=== PATIENT | female | born 1970 | race Caucasian/White ===

== ENCOUNTER 2021-01-01 17:06 | Emergency (ER) | payer BC ==
[~2021-01-01] VITALS: Ht 167.6 cm; Wt 82.0 kg
[2021-01-01 17:13] VITALS: BP 127/92
--- NOTE | 2021-01-01 17:47 | RAD ---
Two-view chest dated 01/01/2021 5:45 PM Comparison: None CLINICAL INDICATION: Cough FINDINGS: PA and lateral views obtained. Heart and mediastinal contours within normal limits. Lungs are clear. No consolidation or pleural effusion. No pneumothorax. IMPRESSION: No acute radiographic abnormality. Electronically signed by: Matthew Leal MD (01/01/2021 5:45 PM) JESSICA
[2021-01-01] MEDS ORDERED: METH4TAB2 PO (18:16)
[2021-01-01] MEDS ORDERED: GUAI120L35 PO (18:16)
[2021-01-01] MEDS ORDERED: BENZ100C PO (18:16)
--- NOTE | 2021-01-01 18:17 | PHYS DOC ---
Past History Past Surgical History: Hysterectomy (COBY HENDERSON APRN) Alcohol Use: Occasionally (COBY HENDERSON APRN) General Adult EDM: Chief Complaint: COUGH HPI: HPI: Patient is a 50-year-old female who presents with cough. Patient states that her cough has progressively gotten worse over the last couple of months. Patient has a history of COPD. Patient reports clear sputum. Coughing is worse at night. "I feel like my cough is gotten worse since I received my Covid shot". Patient's been using albuterol and Symbicort but does not feel like it is helping. Patient is also been taking NyQuil with no relief. Denies fever. Patient is a 1 pack-a-day smoker. (COBY HENDERSON APRN) Review of Systems: Review of Systems: Constitutional: Denies fever or chills Eyes: Denies change in visual acuity HENT: Denies nasal congestion or sore throat Respiratory: Reports cough Cardiovascular: Denies chest pain or edema GI: Denies abdominal pain, nausea, vomiting, bloody stools or diarrhea : Denies dysuria Musculoskeletal: Denies back pain or joint pain Integument: Denies rash Neurologic: Denies headache, focal weakness or sensory changes Endocrine: Denies polyuria or polydipsia Lymphatic: Denies swollen glands Psychiatric: Denies depression or anxiety (COBY HENDERSON APRN) Allergies: Allergies: Allergies Coded Allergies Type Severity Reaction Last Updated Verified strawberry Allergy Unknown 01/01/21 Yes tomato Allergy Unknown 01/01/21 Yes (COBY HENDERSON APRN) Physical Exam: PE: Constitutional: Well developed, well nourished, no acute distress, non-toxic appearance. [] HENT: Normocephalic, atraumatic, bilateral external ears normal, oropharynx [address], no oral exudates, nose normal. [] Eyes: PERRLA, EOMI, conjunctiva normal, no discharge. [] Neck: Normal range of motion, no tenderness, supple, no stridor. [] Cardiovascular:Heart rate regular rhythm, no murmur [] Lungs & Thorax: Bilateral breath sounds clear to auscultation [] Abdomen: Bowel sounds normal, soft, no tenderness, no masses, no pulsatile masses. [] Skin: Warm, dry, no erythema, no rash. [] Back: No tenderness, no CVA tenderness. [] Extremities: No tenderness, no cyanosis, no clubbing, ROM intact, no edema. [] Neurologic: Alert and oriented X 3, normal motor function, normal sensory function, no focal deficits noted. [] Psychologic: Affect normal, judgement normal, mood normal. [] (OCBY HENDERSON APRN) Current Patient Data: Vital Signs: Vital Signs Date Time Temp Pulse Resp B/P (MAP) Pulse Ox O2 Delivery O2 Flow Rate FiO2 01/01/21 17:13 98.3 104 16 127/92 99 Room Air (COBY HENDERSON APRN) EKG: EKG: [] (COBY HENDERSON APRN) Radiology/Procedures: Radiology/Procedures: [] (COBY HENDERSON APRN) Heart Score: C/O Chest Pain: No Risk Factors: Risk Factors: DM, Current or recent (<one month) smoker, HTN, HLP, family history of CAD, obesity. Risk Scores: Score 0 - 3: 2.5% MACE over next 6 weeks - Discharge Home Score 4 - 6: 20.3% MACE over next 6 weeks - Admit for Clinical Observation Score 7 - 10: 72.7% MACE over next 6 weeks - Early Invasive Strategies (COBY HENDERSON APRN) Course & Med Decision Making: Course & Med Decision Making Pertinent Labs and Imaging studies reviewed. (See chart for details) [] 50-year-old female presents with productive cough. Patient reports that cough is progressively gotten worse over the last couple of months. Patient does have a history of COPD and uses Symbicort and albuterol at home. Patient is also been doing nebulizer treatments with not much relief. Chest x-ray is unremarkable. Patient given Medrol Dosepak, Tessalon Perles, codeine cough syrup. Patient instructed to follow-up with her PCP or return to emergency room if symptoms worsen. Patient states that she understands discharge plan. Patient is hemodynamically stable upon disposition. (COBY HENDERSON APRN) Dragon Disclaimer: Dragon Disclaimer: This electronic medical record was generated, in whole or in part, using a voice recognition dictation system. (COBY HENDERSON APRN) Attending Co-Sign The patient was seen and interviewed as well as examined at the bedside. The chart was reviewed. The case was discussed. Agree with the plan of care. (SAUL SALAMANCA DO) Departure Departure: Impression: Primary Impression: Cough Disposition: 01 HOME / SELF CARE / HOMELESS Condition: STABLE Referrals: PCP,DAVID (PCP) Patient Instructions: Cough, Adult, [id number] Additional Instructions: You are seen in the emergency room for a cough. Chest x-ray was negative. I am sending home prescription for Medrol Dosepak, Tessalon Perles, codeine cough syrup. Please follow-up with your PCP. If symptoms worsen please return to the emergency room. EMERGENCY DEPARTMENT GENERAL DISCHARGE INSTRUCTIONS Thank you for coming to [facility] (ED) today and trusting us with you care. We trust that you had a positivie experience in our Emergency Department. If you wish to speak to the department management, you may call the director at [phone]. YOUR FOLLOW UP INSTRUCTIONS ARE FOLLOWS: 1. Do you have a private Doctor? If you do not have a private doctor, please ask for a resource list of physicians or clinics that may be able to assist you with follow up care. 2. The Emergency Physician has interpreted your x-rays. The X-Ray specialist will also review them. If there is a change in the findings, you will be notified in 48 hours when at all possible. 3. A lab test or culture has been done, your results will be reviewed and you will be notified if you need a change in treatment. ADDITIONAL INSTRUCTIONS AND INFORMATION: 1. Your care today has been supervised by a physician who is specially trained in emergency care. Many problems require more than one evaluation for a complete diagnosis and treatment. We recommend that you schedule your follow up appointment as recommended to ensure complete treatment of you illness or injury. If you are unable to obtain follow up care and continue to have a problem, or if your condition worsens, we recommend that you return to the ED. 2. We are not able to safely determine your condition over the phone nor are we able to give sound medical advice over the phone. For these safety reasons, if you call for medical advice we will ask you to come to the ED for further evaluation. 3. If you have any questions regarding these discharge instructions please call the ED at [phone]. SAFETY INFORMATION: In the interest of safety, wellness, and injury prevention; we encourage you to wear your sealbelt, if you smoke; quite smoking, and we encourage family to use a protective helmet for bicycling and other sporting events that present an increased risk for head injury. IF YOUR SYMPTOMS WORSEN OR NEW SYMPTOMS DEVELOP, OR YOU HAVE CONCERNS ABOUT YOUR CONDITION; OR IF YOUR CONDITION WORSENS WHILE YOU ARE WAITING FOR YOUR FOLLOW UP APPOINTMENT; EITHER CONTACT YOUR PRIMARY CARE DOCTOR, THE PHYSICIAN WHOSE NAME AND NUMBER YOU WERE GIVEN, OR RETURN TO THE ED IMMEDIATELY. Scripts Methylprednisolone (MEDROL) 4 Mg Tab.ds.pk 1 PKG PO UD for inflammation for 6 Days, #1 PKG 0 Refills Prov: COBY HENDERSON APRN 01/01/21 Benzonatate (TESSALON PERLE) 100 Mg Capsule 1 CAP PO TID for cough for 7 Days, #21 CAP Prov: COBY HENDERSON APRN 01/01/21 Guaifenesin/Codeine Phosphate (Codeine-Guaifen 10-100 mg/5 ml) 120 Ml Liquid 5 ML PO PRN Q6HRS PRN for cough and congestion MDD 20 Milliliter(s) for 6 Days, #120 ML 0 Refills Prov: COBY HENDERSON APRN 01/01/21 COBY HENDERSON APRN Jan 01, 2021 18:16 SAUL SALAMANCA DO Jan 04, 2021 10:16
== END 2021-01-01 18:23 | disposition home or self-care (01) ==
LOC: ER 17:06
DX: R05 Cough (principal); J44.9 Chronic obstructive pulmonary disease, unspecified; F17.200 Nicotine dependence, unspecified, uncomplicated; Z91.018 Allergy to other foods
CPT/HCPCS: 71046; 99283